=== PATIENT | male | born 1945 | race Caucasian/White ===

== ENCOUNTER 2022-10-01 11:14 | Emergency (ER) | payer MEDICARE, OTHER, SELFPAY ==
[2022-10-01 11:16] VITALS: BP 185/94; PULSE 58; RESP 16; TEMP 36.6; O2SAT 96; BMI 27.6
--- NOTE | 2022-10-01 11:24 | ED_ITS ---
HPI - Abdominal Pain General Chief Complaint: Abdominal Pain Stated Complaint: abd pain Time Seen by Provider: 10/01/22 11:22 Source: patient and EMS Mode of arrival: EMS History of Present Illness HPI narrative: Patient is 77-year-old male history atrial fibrillation with we have this pacemaker on Eliquis, abdominal aortic aneurysm measuring 4.1 cm, transverse colectomy secondary to Crohn's disease, chronic it right inguinal hernia pre sents today with vomiting decreasing bowel movements abdominal pain and pain in his right hernia. He reports that 2 days ago he was doing fine yesterday he started noticing some more pain in his right inguinal hernia was definitely worse when he was standing better when he was sitting. He started having some nausea a little bit of vomiting today and he is had significant decrease in bowel movements. No fever or chills. He denies any chest pain or palpitations. He is not passed out. He is traveling from out of [facility], [facility]. Related Data Allergies Allergy/AdvReac Type Severity Reaction Status Date / Time morphine Allergy Verified 10/01/22 11:21 Review of Systems Review of Systems ROS Unobtainable: All systems reviewed & are unremarkable except as noted in HPI and below Patient History Medical History Afib Hypertension Social History Smoking Status: Former smoker Smoking Status: Former smoker Substance Use Type: does not use Exam Initial Vital Signs Initial Vital Signs: Vital Signs Temperature 97.8 F 10/01/22 11:16 Pulse Rate 58 L 10/01/22 11:16 Respiratory Rate 16 10/01/22 11:16 Blood Pressure 185/94 H 10/01/22 11:16 Pulse Oximetry 96 10/01/22 11:16 Oxygen Delivery Method Room Air 10/01/22 11:16 GENERAL: Alert pleasant 77-year-old male and in no acute distress. HEENT: Head atraumatic,EOMI, pupils reactive, face symmetric, moist mucous membranes CARDIOVASCULAR: Regular rate and rhythm without murmurs, rubs or gallops. RESPIRATORY: Breath sounds equal bilaterally, no wheezes rales or rhonchi. ABDOMEN: Soft, nontender. No guarding or rebound. No pulsatile mass decreased bowel sounds : Right inguinal hernia which is large and easily reduced. EXTREMITIES: Normal range of motion, no clubbing or edema. Neurovascularly intact NEUROLOGICAL: Alert and oriented x4.Normal gait and speech. SKIN: Warm, dry, no laceration, no petechiae, no rashes or lesions. Course Orders Ordered: ED Orders 10/01/22 11:16 Complete Blood Count AUTO DIFF Stat Comprehensive Metabolic Panel Stat Lactate (Lactic Acid) Stat Lipase Stat Troponin & CK Cardiac Panel Stat 10/01/22 11:27 EKG-12 Lead Routine 10/01/22 11:37 CT abdomen pelvis w con Stat Vital Signs Vital signs: Vital Signs - 8 hr 10/01/22 11:16 10/01/22 11:30 10/01/22 12:33 Temperature 97.8 F Pulse Rate 58 L 48 L 50 L Respiratory Rate 16 23 17 Blood Pressure 185/94 H 156/77 H 125/73 Pulse Oximetry 96 96 97 Oxygen Delivery Method Room Air 10/01/22 12:45 10/01/22 13:00 Temperature Pulse Rate 49 L 50 L Respiratory Rate 20 20 Blood Pressure 136/78 140/80 Pulse Oximetry 96 96 Oxygen Delivery Method Room Air MDM - Abdominal Pain Lab Data 10/01/22 11:16 10/01/22 11:16 Labs: Lab Results 10/01/22 10/01/22 10/01/22 Range/Units 11:16 11:16 11:16 WBC 6.6 (4.5-11.0) X10^3/uL RBC 4.31 L (4.5-5.9) X10^6/uL Hgb 14.8 (13.5-17.5) g/dL Hct 42.6 (41-53) % MCV 98.8 (80-100) fL MCH 34.3 H (26-34) PG MCHC 34.7 (30-36) % RDW 15.2 H (11.6-14.8) % Plt Count 185 (150-400) X10^3/uL Neut % (Auto) 84.1 H (50-75) % Lymph % (Auto) 6.1 L (25-40) % Wayne % (Auto) 7.8 (3-14) % Eos % (Auto) 1.6 L (2-4) % Baso % (Auto) 0.4 (0-2) % Neut # (Auto) 5500 (0320-1711) /uL Lymph # (Auto) 400 L (4994-9961) /uL Wayne # (Auto) 500 (0-900) /uL Eos # (Auto) 100 (0-450) /uL Baso # (Auto) 0 (0-100) /uL Sodium 136 L (137-145) mmol/L Potassium 4.3 (3.4-5.1) mmol/L Chloride 101 (98-107) mmol/L Carbon Dioxide 28 (22-32) mmol/L BUN 17 (9-20) mg/dL Creatinine 0.65 L (0.66-1.25) mg/dL Estimated GFR > 60 (>60) mL/min BUN/Creatinine Ratio 26.2 H (6-22) Glucose 116 H (80-110) mg/dL Lactate 1.3 (0.7-2.1) mmol/L Calcium 8.9 (8.4-10.2) mg/dL Total Bilirubin 1.0 (0.2-1.3) mg/dL AST 32 (17-59) IU/L ALT 27 (<50) IU/L Alkaline Phosphatase 118 (38-126) U/L Total Creatine Kinase (55-170) U/L Troponin I (0.01-0.034) ng/mL Total Protein 7.6 (6.3-8.2) g/dL Albumin 4.0 (3.5-5.0) g/dL Globulin 3.6 (1.7-4.1) g/dL Albumin/Globulin Ratio 1.1 (1.0-2.8) Lipase 17 L (23-300) U/L 10/01/22 Range/Units 11:16 WBC (4.5-11.0) X10^3/uL RBC (4.5-5.9) X10^6/uL Hgb (13.5-17.5) g/dL Hct (41-53) % MCV (80-100) fL MCH (26-34) PG MCHC (30-36) % RDW (11.6-14.8) % Plt Count (150-400) X10^3/uL Neut % (Auto) (50-75) % Lymph % (Auto) (25-40) % Wayne % (Auto) (3-14) % Eos % (Auto) (2-4) % Baso % (Auto) (0-2) % Neut # (Auto) (1213-5281) /uL Lymph # (Auto) (4252-6437) /uL Wayne # (Auto) (0-900) /uL Eos # (Auto) (0-450) /uL Baso # (Auto) (0-100) /uL Sodium (137-145) mmol/L Potassium (3.4-5.1) mmol/L Chloride (98-107) mmol/L Carbon Dioxide (22-32) mmol/L BUN (9-20) mg/dL Creatinine (0.66-1.25) mg/dL Estimated GFR (>60) mL/min BUN/Creatinine Ratio (6-22) Glucose (80-110) mg/dL Lactate (0.7-2.1) mmol/L Calcium (8.4-10.2) mg/dL Total Bilirubin (0.2-1.3) mg/dL AST (17-59) IU/L ALT (<50) IU/L Alkaline Phosphatase (38-126) U/L Total Creatine Kinase 86 (55-170) U/L Troponin I 0.015 (0.01-0.034) ng/mL Total Protein (6.3-8.2) g/dL Albumin (3.5-5.0) g/dL Globulin (1.7-4.1) g/dL Albumin/Globulin Ratio (1.0-2.8) Lipase (23-300) U/L Point of care testing: Urine Dip Bedside Urine Glucose Negative Bedside Urine Bilirubin - Negative Bedside Urine Ketone - Negative Urine Specific [place] 1.005 Bedside Urine Occult Blood - Negative Bedside Urine pH 6.5 Bedside Urine Protein - Negative Bedside Urine Urobilinogen - Negative Bedside Urine Nitrite - Negative Bedside Urine Leukocytes - Negative Esterase Imaging Data CT scan - abdomen/pelvis: Radiologist's Impression: PROCEDURE:? CT ABDOMEN PELVIS W CON ? INDICATIONS:? vomiting hx colectomy, aneurysm 4.1 cm ? TECHNIQUE:? After the administration of intravenous contrast, axial sections acquired from the lung bases to the pubic symphysis.? Coronal and sagittal reformats were performed.? For radiation dose reduction, the following was used:? automated exposure control, adjustment of mA and/or kV according to patient size.? ? COMPARISON:? None. ? FINDINGS:? Image quality:? Excellent.? ? Lung bases:? Trace lung herniation between the interosseous space at the left lung base. Heart:? Cardiomegaly. ? ABDOMEN: Liver:? Unremarkable.? ? Gallbladder:? Absent.? ? Biliary ducts:? Unremarkable.? ? Pancreas:? Unremarkable.? ? Spleen:? Unremarkable.? ? Adrenal Glands:? 1.5 centimeter nodularity medial to the left adrenal gland (series 2, image 18).? ? Kidneys and Ureters: No complex renal cystic lesions which require follow-up.? No hydronephrosis ? Stomach and Bowel:? Stomach, small bowel loops, and colon are unremarkable.? Prior enterotomy, surgical anastomosis in the mid abdomen.? No obstruction. Peritoneum:? No abnormal intraperitoneal fluid.? No free air.? ? Ventral Wall:? Wide-mouth ventral wall hernia containing a knuckle of nonobstructed transverse colon wall. Abdominal Nodes:? No retroperitoneal or mesenteric adenopathy by size criteria.? Vessels:? Aorta and inferior vena cava are normal in size.? ? PELVIS: Pelvic Organs:? Unremarkable.? ? Bladder:? Unremarkable.? ? Pelvic Nodes: No enlarged lymph nodes.? Miscellaneous:? Fat and fluid containing inguinal hernias.? ? Bones:? Grade 1 anterolisthesis of L4 on L5 secondary to facet arthrosis. ? ? IMPRESSION:? Wide-mouth ventral wall hernia containing a knuckle of nonobstructed transverse colon. ? Moderate sized fat and fluid containing inguinal hernias. ? 1.5 centimeter nodularity medial to the left adrenal gland, possibly an exophytic adrenal nodule.? Recommend outpatient CT or MRI for further characterization (adrenal mass protocol). ? ? Dictated by: Mando Magallon M.D. on 10/01/2022 at 12:11 ? ? ECG Data Interpretation: Paced rhythm rate 51 no Sgarbossa criteria MDM Narrative Medical decision making narrative: Patient is a 77-year-old male presenting today with right inguinal pain decreas ed bowel movements nausea vomiting. Inguinal hernia easily reduced. Blood work is overall reassuring no electrolyte abnormality no JASON no anemia or leukocytosis. Abdomen does not have any significant pain proportion no concern ischemia. CT does not show any sign of obstruction, does show multiple hernias without incarceration. Pain is controlled. He has a brace. At this time no further treatment or workup indicated. Discharge Plan Departure Patient Disposition: Home Clinical Impression: Inguinal hernia Instructions: Groin Hernia -- Adult Activity Restrictions/Additional Instructions: *You have been diagnosed with right inguinal hernia *What to do: At this time no real cause of your pain. Your hernia was easily reduced no incarceration. *Continue to take medications as directed *Follow up with your primary care provider in 2-3 days or call [phone] *Return to ER if you should have increasing pain persistent vomiting or any new, worsening or concerning symptoms Referrals: Miscellaneous,Doctor, MD [Primary Care Provider] - Stand Alone Forms: Patient Portal/API
[2022-10-01 11:30] VITALS: BP 156/77; PULSE 48; RESP 23; O2SAT 96
[2022-10-01 11:37] LABS: Add Manual Diff / Slide Review NO; Basophils Absolute Auto 0 /uL (0-100); Basophils Percent Auto 0.4 % (0-2); Eosinophils Absolute Auto 100 /uL (0-450); Eosinophils Percent Auto 1.6 % (2-4); Hematocrit 42.6 % (41-53); Hemoglobin 14.8 g/dL (13.5-17.5); Lymphocytes Absolute Auto 400 /uL (1100-4500); Lymphocytes Percent Auto 6.1 % (25-40); Mean Corpuscular HGB Conc 34.7 % (30-36); Mean Corpuscular Hemoglobin 34.3 PG (26-34); Mean Corpuscular Volume 98.8 fL (80-100); Monocytes Absolute Auto 500 /uL (0-900); Monocytes Percent Auto 7.8 % (3-14); Neutrophils Absolute Auto 5500 /uL (1500-7000); Neutrophils Percent Auto 84.1 % (50-75); Platelet Count 185 X10^3/uL (150-400); Red Blood Cell Count 4.31 X10^6/uL (4.5-5.9); Red Cell Distribution Width 15.2 % (11.6-14.8); White Blood Cell Count 6.6 X10^3/uL (4.5-11.0)
--- NOTE | 2022-10-01 11:37 | DI.CT.S_ITS ---
PROCEDURE: CT ABDOMEN PELVIS W CON INDICATIONS: vomiting hx colectomy, aneurysm 4.1 cm TECHNIQUE: After the administration of intravenous contrast, axial sections acquired from the lung bases to the pubic symphysis. Coronal and sagittal reformats were performed. For radiation dose reduction, the following was used: automated exposure control, adjustment of mA and/or kV according to patient size. COMPARISON: None. FINDINGS: Image quality: Excellent. Lung bases: Trace lung herniation between the interosseous space at the left lung base. Heart: Cardiomegaly. ABDOMEN: Liver: Unremarkable. Gallbladder: Absent. Biliary ducts: Unremarkable. Pancreas: Unremarkable. Spleen: Unremarkable. Adrenal Glands: 1.5 centimeter nodularity medial to the left adrenal gland (series 2, image 18). Kidneys and Ureters: No complex renal cystic lesions which require follow-up. No hydronephrosis Stomach and Bowel: Stomach, small bowel loops, and colon are unremarkable. Prior enterotomy, surgical anastomosis in the mid abdomen. No obstruction. Peritoneum: No abnormal intraperitoneal fluid. No free air. Ventral Wall: Wide-mouth ventral wall hernia containing a knuckle of nonobstructed transverse colon wall. Abdominal Nodes: No retroperitoneal or mesenteric adenopathy by size criteria. Vessels: Aorta and inferior vena cava are normal in size. PELVIS: Pelvic Organs: Unremarkable. Bladder: Unremarkable. Pelvic Nodes: No enlarged lymph nodes. Miscellaneous: Fat and fluid containing inguinal hernias. Bones: Grade 1 anterolisthesis of L4 on L5 secondary to facet arthrosis. IMPRESSION: Wide-mouth ventral wall hernia containing a knuckle of nonobstructed transverse colon. Moderate sized fat and fluid containing inguinal hernias. 1.5 centimeter nodularity medial to the left adrenal gland, possibly an exophytic adrenal nodule. Recommend outpatient CT or MRI for further characterization (adrenal mass protocol). Dictated by: Mando Magallon M.D. on 10/01/2022 at 12:11 Approved by: Mando Magallon M.D. on 10/01/2022 at 12:16
[2022-10-01 11:38] LABS: Alanine Aminotransferase 27 IU/L (<50); Albumin Globulin Ratio 1.1 (1.0-2.8); Alkaline Phosphatase 118 U/L (38-126); Aspartate Aminotransferase 32 IU/L (17-59); BUN Creatinine Ratio 26.2 (6-22); Blood Urea Nitrogen 17 mg/dL (9-20); Calcium 8.9 mg/dL (8.4-10.2); Carbon Dioxide 28 mmol/L (22-32); Chloride 101 mmol/L (98-107); Estimated Glomerular Filt Rate > 60 mL/min (>60); Globulin 3.6 g/dL (1.7-4.1); Glucose 116 mg/dL (80-110); HEMOLYSIS 19 (0-50); Lipase 17 U/L (23-300); Potassium 4.3 mmol/L (3.4-5.1); Sodium 136 mmol/L (137-145); Total Protein 7.6 g/dL (6.3-8.2)
[2022-10-01 11:39] LABS: Lactate (Lactic Acid) 1.3 mmol/L (0.7-2.1)
[2022-10-01 11:52] LABS: Creatine Kinase 86 U/L (55-170)
[2022-10-01 12:04] LABS: Troponin I 0.015 ng/mL (0.01-0.034)
[2022-10-01 12:33] VITALS: BP 125/73; PULSE 50; RESP 17; O2SAT 97
[2022-10-01 12:45] VITALS: BP 136/78; PULSE 49; RESP 20; O2SAT 96
[2022-10-01 13:00] VITALS: BP 140/80; PULSE 50; RESP 20; O2SAT 96
== END 2022-10-01 13:12 | disposition home or self-care (01) ==
PROVIDERS: Emergency Provider Emergency Medicine
DX: K40.90 Unilateral inguinal hernia, without obstruction or gangrene, not specified as recurrent (principal); R10.9 Unspecified abdominal pain; Z95.0 Presence of cardiac pacemaker; Z79.01 Long term (current) use of anticoagulants
CPT/HCPCS: 36415; 74177; 80053; 81003; 82550; 83605; 83690; 84484; 85025; 93005; 99283; 99284; Q9967